=== PATIENT | male | born 1980 | race Caucasian/White ===

== ENCOUNTER 2018-07-18 19:53 | Emergency (ER) | payer OTHER ==
[~2018-07-18] VITALS: Ht 172.7 cm; Wt 156.5 kg
[~2018-07-18 19:53] MED LIST: ALBU90OI; AZIT500 PO; NAPR500 PO
[2018-07-18] MEDS ORDERED: HYDPAM25 PO (20:18)
[2018-07-18] MEDS ORDERED: Prozac40 MG PO (20:18)
[2018-07-18] MEDS ORDERED: IBUP800 (20:18)
[2018-07-18] MEDS ORDERED: OXYB5 PO (20:18)
[2018-07-18] MEDS ORDERED: Metformin HCl500 MG (20:19)
[2018-07-18] MEDS ORDERED: TOPIRAMATE 200 MG (20:19)
[2018-07-18] MEDS ORDERED: ACID REDUCER 1150 MG (20:19)
[2018-07-18] MEDS ORDERED: BUPR100 PO (20:20)
[2018-07-18] MEDS ORDERED: Robaxin500 MG PO (21:40)
[2018-07-18] MEDS ORDERED: LIDO700A20 TOP (21:40)
== END 2018-07-18 21:47 | disposition home or self-care (01) ==
LOC: ER 19:53
DX: M54.5 Low back pain (principal); Z88.0 Allergy status to penicillin; Z88.2 Allergy status to sulfonamides; Z79.899 Other long term (current) drug therapy; F41.9 Anxiety disorder, unspecified; K21.9 Gastro-esophageal reflux disease without esophagitis; J45.909 Unspecified asthma, uncomplicated; F17.210 Nicotine dependence, cigarettes, uncomplicated
CPT/HCPCS: 96372; 99283-25; J1885; J2920

== ENCOUNTER 2023-03-11 12:33 | Emergency (ER) | payer OTHER ==
[~2023-03-11] VITALS: Ht 170.2 cm; Wt 181.4 kg
[~2023-03-11 12:33] MED LIST changes: +ACID REDUCER 1150 MG; +BUPR100 PO; +HYDPAM25 PO; +IBUP800; +LIDO700A20 TOP; +Metformin HCl500 MG; +OXYB5 PO; +Prozac40 MG PO; +Robaxin500 MG PO; +TOPIRAMATE 200 MG
[2023-03-11 12:57] VITALS: BP 161/94
[2023-03-11 13:34] LABS: Source, Urine Clean Catch
[2023-03-11 13:39] LABS: Appearance, Urine Clear (Clear); Bilirubin, Urine Neg (Neg); Blood, Urine 5+ (Neg); Color, Urine Yellow (P-Yellow); Glucose Qualitative, Urine Neg (Neg); Ketones, Urine Neg (Neg); Leukocyte Esterase, Urine Neg (Neg); Nitrite, Urine Neg (Neg); Protein, Urine Neg (Neg); Specific Gravity, Urine 1.015 (1.003-1.022); Urobilinogen, Urine NORM (Normal)
[2023-03-11 13:52] LABS: Bacteria Few /hpf; Mucus Light (0-Heavy); Squamous Epithelial Cells Rare /hpf (Few); White Blood Cells, Urine 0-2 /hpf (0-5)
== END 2023-03-11 14:26 | disposition home or self-care (01) ==
LOC: ER 12:33
PROVIDERS: Emergency Medicine
DX: R25.2 Cramp and spasm (principal); J45.909 Unspecified asthma, uncomplicated; K21.9 Gastro-esophageal reflux disease without esophagitis; F17.210 Nicotine dependence, cigarettes, uncomplicated; Z88.0 Allergy status to penicillin; Z88.2 Allergy status to sulfonamides; Z79.899 Other long term (current) drug therapy
CPT/HCPCS: 81001; 99284

== ENCOUNTER 2025-02-02 00:11 | Emergency (ER) | payer OTHER ==
[~2025-02-02] VITALS: Ht 172.7 cm; Wt 181.4 kg
[~2025-02-02 00:11] MED LIST changes: +AMOCLA875 PO; +CEPH500 PO
[2025-02-02 00:37] LABS: BASOPHILS ABSOLUTE AUTO 0.09 K/mm3 (0.00-0.23); BASOPHILS PERCENT AUTO 1 % (0-2); EOSINOPHILS ABSOLUTE AUTO 0.37 K/mm3 (0.00-0.68); EOSINOPHILS PERCENT AUTO 3 % (0-6); Hematocrit 50.8 % (37.0-53.0); Hemoglobin 16.3 g/dL (13.5-17.5); IMMATURE GRAN ABSOLUTE AUTO 0.06 K/mm3 (0.00-0.10); IMMATURE GRAN PERCENT AUTO 0 % (0-1); LYMPHOCYTES ABSOLUTE AUTO 4.18 K/mm3 (0.84-5.20); LYMPHOCYTES PERCENT AUTO 31 % (21-46); MONOCYTES ABSOLUTE AUTO 1.28 K/mm3 (0.16-1.47); MONOCYTES PERCENT AUTO 9 % (4-13); Mean Corpuscular HGB Conc 32.1 g/dL (31.5-36.5); Mean Corpuscular Volume 89 fL (80-100); NEUTROPHILS ABSOLUTE AUTO 7.63 K/mm3 (1.96-9.15); NEUTROPHILS PERCENT AUTO 56 % (41-73); NRBC ABSOLUTE 0.00 K/mm3 (0.00-0.02); NRBC Auto 0.0 /100 WBC (0.0-0.2); Platelet Count 370 K/mm3 (150-400); RDW Coefficient Variation 14.4 % (11.7-14.2); RDW Standard Deviation 47.0 fL (35.1-46.3)
[2025-02-02 00:57] LABS: Alanine Aminotransfer (ALT/SGP 32.0 U/L (12-78); Albumin, Blood 3.7 g/dL (3.4-5.0); Albumin/Globulin Ratio 0.9 (0.8-1.8); Anion Gap 5.0 mmol/L (3-11); Aspartate Aminotrans (AST/SGOT 34.0 U/L (12-37); Bilirubin, Total 0.3 mg/dL (0.1-1.0); Blood Urea Nitrogen 15.0 mg/dL (8-24); CO2, Blood 31.0 mmol/L (21-32); Calcium, Blood 8.9 mg/dL (8.5-10.1); Chloride, Blood 103.0 mmol/L (98-108); Creatinine, Blood 0.81 mg/dL (0.60-1.20); Globulin, Blood 4.2 g/dL (2.2-4.0); Glucose, Blood 99.0 mg/dL (70-99); Potassium, Blood 4.3 mmol/L (3.5-5.5); Sodium, Blood 135.0 mmol/L (136-145); Total Protein, Blood 7.9 g/dL (6.4-8.2)
[2025-02-02 01:48] VITALS: BP 101/54
== END 2025-02-02 02:05 | disposition home or self-care (01) ==
LOC: ER 00:11
PROVIDERS: Student in an Organized Health Care Education/Training Program
DX: R07.2 Precordial pain (principal); K21.9 Gastro-esophageal reflux disease without esophagitis; J45.909 Unspecified asthma, uncomplicated; Z88.2 Allergy status to sulfonamides; Z90.89 Acquired absence of other organs; F17.290 Nicotine dependence, other tobacco product, uncomplicated
CPT/HCPCS: 71046; 80053; 83690; 84484; 85025; 93005; 93010; 99285-25

== ENCOUNTER 2025-03-23 21:40 | Emergency (ER) | payer OTHER ==
[~2025-03-23] VITALS: Ht 172.7 cm; Wt 167.8 kg
[2025-03-24] MEDS ORDERED: ACET500 PO (00:40)
[2025-03-24 00:49] VITALS: BP 155/73
== END 2025-03-24 00:48 | disposition home or self-care (01) ==
LOC: ER 21:40
DX: F10.129 Alcohol abuse with intoxication, unspecified (principal); K21.9 Gastro-esophageal reflux disease without esophagitis; J45.909 Unspecified asthma, uncomplicated; F17.210 Nicotine dependence, cigarettes, uncomplicated; Z88.2 Allergy status to sulfonamides
CPT/HCPCS: 70450; 72125; 80320; 99284-25

== ENCOUNTER 2025-04-06 16:49 | Emergency (ER) | payer OTHER ==
[~2025-04-06] VITALS: Ht 172.7 cm; Wt 184.6 kg
[~2025-04-06 16:49] MED LIST changes: +ACET500 PO
[2025-04-06 17:14] VITALS: BP 144/89
[2025-04-06] MEDS ORDERED: Flonase 0.05% N16 GM (17:17)
[2025-04-06 17:32] LABS: BASOPHILS ABSOLUTE AUTO 0.09 K/mm3 (0.00-0.23); BASOPHILS PERCENT AUTO 1 % (0-2); EOSINOPHILS ABSOLUTE AUTO 0.49 K/mm3 (0.00-0.68); EOSINOPHILS PERCENT AUTO 4 % (0-6); Hematocrit 48.3 % (37.0-53.0); Hemoglobin 16.0 g/dL (13.5-17.5); IMMATURE GRAN ABSOLUTE AUTO 0.07 K/mm3 (0.00-0.10); IMMATURE GRAN PERCENT AUTO 1 % (0-1); LYMPHOCYTES ABSOLUTE AUTO 2.87 K/mm3 (0.84-5.20); LYMPHOCYTES PERCENT AUTO 22 % (21-46); MONOCYTES ABSOLUTE AUTO 1.47 K/mm3 (0.16-1.47); MONOCYTES PERCENT AUTO 11 % (4-13); Mean Corpuscular HGB Conc 33.1 g/dL (31.5-36.5); Mean Corpuscular Volume 89 fL (80-100); NEUTROPHILS ABSOLUTE AUTO 8.25 K/mm3 (1.96-9.15); NEUTROPHILS PERCENT AUTO 62 % (41-73); NRBC ABSOLUTE 0.00 K/mm3 (0.00-0.02); NRBC Auto 0.0 /100 WBC (0.0-0.2); Platelet Count 307 K/mm3 (150-400); RDW Coefficient Variation 14.7 % (11.7-14.2); RDW Standard Deviation 47.9 fL (35.1-46.3)
[2025-04-06 17:54] LABS: Alanine Aminotransfer (ALT/SGP 34.0 U/L (12-78); Albumin, Blood 3.5 g/dL (3.4-5.0); Albumin/Globulin Ratio 0.9 (0.8-1.8); Anion Gap 7.0 mmol/L (3-11); Aspartate Aminotrans (AST/SGOT 30.0 U/L (12-37); Bilirubin, Total 0.4 mg/dL (0.1-1.0); Blood Urea Nitrogen 20.0 mg/dL (8-24); CO2, Blood 26.0 mmol/L (21-32); Calcium, Blood 8.9 mg/dL (8.5-10.1); Chloride, Blood 108.0 mmol/L (98-108); Creatinine, Blood 0.78 mg/dL (0.60-1.20); Globulin, Blood 4.0 g/dL (2.2-4.0); Glucose, Blood 99.0 mg/dL (70-99); Potassium, Blood 4.1 mmol/L (3.5-5.5); Sodium, Blood 137.0 mmol/L (136-145); Total Protein, Blood 7.5 g/dL (6.4-8.2)
[2025-04-06] MEDS ORDERED: Polyethylene Glycol 3350 17 gm PO ONE (20:50)
[2025-04-06] MEDS ORDERED: NS 1,000 ML IV SCH (20:55)
[2025-04-06] MEDS ORDERED: ADULT GLYCERIN1 EACH PR (22:52)
[2025-04-06] MEDS ORDERED: MIRALAX17 GM PO (22:52)
== END 2025-04-06 22:55 | disposition home or self-care (01) ==
LOC: ER 16:49
PROVIDERS: Student in an Organized Health Care Education/Training Program
DX: K64.8 Other hemorrhoids (principal); K59.00 Constipation, unspecified; E86.0 Dehydration; Z88.2 Allergy status to sulfonamides; F17.290 Nicotine dependence, other tobacco product, uncomplicated; Z79.899 Other long term (current) drug therapy; Z59.89 Other problems related to housing and economic circumstances; F17.200 Nicotine dependence, unspecified, uncomplicated
CPT/HCPCS: 74018; 80053; 85025; 96360; 99283-25; A9270; J7030